=== PATIENT | female | born 1980 | race Caucasian/White ===

== ENCOUNTER 2017-08-28 17:59 | Emergency (ER) | payer OTHER ==
[~2017-08-28] VITALS: Ht 71.1 cm; Wt 80.7 kg
[2017-08-28 18:34] VITALS: Ht 71.1 cm; Wt 80.7 kg
[2017-08-28 21:06] VITALS: BP 114/74
== END 2017-08-28 21:06 | disposition home or self-care (01) ==
LOC: ED 17:59
DX: J20.9 Acute bronchitis, unspecified (principal)
CPT/HCPCS: J1885; Q0092

== ENCOUNTER 2017-09-04 02:53 | Emergency (ER) | payer OTHER ==
[2017-09-04 04:23] VITALS: BP 115/73
== END 2017-09-04 04:32 | disposition home or self-care (01) ==
LOC: ED 02:53
DX: J20.9 Acute bronchitis, unspecified (principal); H10.9 Unspecified conjunctivitis
CPT/HCPCS: J7613; J7644

== ENCOUNTER 2018-07-15 04:46 | Emergency (ER) | payer OTHER ==
[~2018-07-15] VITALS: Ht 162.6 cm; Wt 75.7 kg
[2018-07-15 05:44] VITALS: BP 133/97
== END 2018-07-15 05:44 | disposition home or self-care (01) ==
LOC: ED 04:46
DX: N75.1 Abscess of Bartholin's gland (principal); H91.93 Unspecified hearing loss, bilateral
CPT/HCPCS: J2001

== ENCOUNTER 2019-02-12 21:20 | Emergency (ER) | payer OTHER ==
[~2019-02-12] VITALS: Ht 162.6 cm; Wt 61.8 kg
[2019-02-12 21:28] VITALS: Ht 162.6 cm; Wt 61.8 kg
[2019-02-12 23:42] LABS: CALCIUM 8.5 mg/dL (8.5-10.1); CARBON DIOXIDE 27.8 mmol/L (21-32); CHLORIDE SERUM 106 mmol/L (98-107); CREATININE SERUM 0.9 mg/dL (0.6-1.0); GFR1 > 60 mL/min; GLUCOSE SERUM 114 mg/dL (74-106); POTASSIUM SERUM 3.2 mmol/L (3.5-5.1); SODIUM SERUM 143 mmol/L (136-145)
[2019-02-12 23:44] LABS: BASOPHIL % 0.3 % (0-2); PLATELET COUNT 279 x10^3mcL (130-400); RED CELL DISTRIBUTION WIDTH 13.4 % (11.5-14.5)
[2019-02-12 23:47] LABS: ALBUMIN 3.1 g/dL (3.4-5.0); ALKALINE PHOSPHATASE 90 U/L (46-116); ALT/SGPT 18 U/L (14-59); AST/SGOT 15 U/L (15-37); BILIRUBIN TOTAL 0.3 mg/dL (0.20-1.00); TOTAL PROTEIN, SERUM 6.3 g/dL (6.4-8.2)
[2019-02-13 02:04] VITALS: BP 135/86
== END 2019-02-13 02:04 | disposition home or self-care (01) ==
LOC: ED 21:20
PROVIDERS: Emergency Medicine
DX: L02.411 Cutaneous abscess of right axilla (principal); R07.89 Other chest pain
CPT/HCPCS: 36415; J2001; Q0092

== ENCOUNTER 2019-05-06 21:24 | Emergency (ER) | payer OTHER ==
[~2019-05-06] VITALS: Ht 157.5 cm; Wt 63.5 kg
[2019-05-06 21:30] VITALS: Ht 157.5 cm; Wt 63.5 kg
[2019-05-06 22:50] VITALS: BP 137/81
== END 2019-05-06 22:50 | disposition home or self-care (01) ==
LOC: ED 21:24
DX: L03.115 Cellulitis of right lower limb (principal)
CPT/HCPCS: Q0162

== ENCOUNTER 2019-09-06 20:32 | Emergency (ER) | payer OTHER ==
[~2019-09-06] VITALS: Ht 162.6 cm; Wt 65.8 kg
[2019-09-06 20:40] VITALS: Ht 162.6 cm; Wt 65.8 kg
[2019-09-06 21:44] VITALS: BP 143/96
== END 2019-09-06 21:46 | disposition home or self-care (01) ==
LOC: ED 20:32
DX: S43.402A Unspecified sprain of left shoulder joint, initial encounter (principal); M54.12 Radiculopathy, cervical region; R20.0 Anesthesia of skin; R20.2 Paresthesia of skin; X58.XXXA Exposure to other specified factors, initial encounter; Y93.84 Activity, sleeping; Y92.89 Other specified places as the place of occurrence of the external cause; Y99.8 Other external cause status
CPT/HCPCS: J1885; Q0092